=== PATIENT | male | born 1945 | race Caucasian/White ===

== ENCOUNTER 2023-08-06 20:23 | Emergency (ER) | payer MEDICARE ==
[2023-08-06 20:49] LABS: BASOPHILS # (AUTO) 0.1 10^3/uL (0.0-0.1); BASOPHILS % (AUTO) 0.6 %; EOSINOPHILS % (AUTO) 0.3 %; HCT - HEMATOCRIT 41.6 % (42.0-52.0); HGB - HEMOGLOBIN 14.3 g/dL (14.0-18.0); LYMPHOCYTES # (AUTO) 1.1 10^3/uL (1.5-3.5); LYMPHOCYTES % (AUTO) 11.4 %; MEAN CORPUSCULAR HEMOGLOBIN 30.8 pg (27.0-31.0); MEAN CORPUSCULAR HGB CONC 34.4 g/dL (32.0-36.0); MEAN CORPUSCULAR VOLUME 89.7 fL (80.0-94.0); MEAN PLATELET VOLUME 10.3 fL (7.4-11.4); MONOCYTES # (AUTO) 0.8 10^3/uL (0.0-1.0); NEUTROPHILS # (AUTO) 7.6 10^3/uL (1.5-6.6); NEUTROPHILS % (AUTO) 79.3 %; PLT - PLATELET COUNT 203 10^3/uL (130-450); RED BLOOD COUNT 4.64 10^6/uL (4.70-6.10); RED CELL DISTRIBUTION WIDTH 11.5 % (12.0-15.0); WHITE BLOOD COUNT 9.6 x10^3/uL (4.8-10.8)
[2023-08-06 21:03] LABS: ALBUMIN 4.5 g/dL (3.2-5.5); ALBUMIN/GLOBULIN RATIO 1.9 (1.0-2.2); CALCIUM 9.6 mg/dL (8.5-10.3); CREATININE 0.8 mg/dL (0.6-1.3); POTASSIUM 3.2 mmol/L (3.5-4.5); TOTAL PROTEIN 6.9 g/dL (6.4-8.9)
[2023-08-06 22:17] LABS: BILIRUBIN,URINE NEGATIVE (NEGATIVE); GLUCOSE, URINE (UA) NEGATIVE (NEGATIVE); KETONES,URINE (UA) TRACE mg/dL (NEGATIVE); LEUKOCYTE ESTERASE, URINE NEGATIVE (NEGATIVE); NITRITE,URINE NEGATIVE (NEGATIVE); OCCULT BLOOD,URINE TRACE-LYSE (NEGATIVE); PH,URINE 6.5 PH (5.0-7.5); PROTEIN,URINE TRACE mg/dL (NEGATIVE); UROBILINOGEN,URINE 0.2 (NORMAL) E.U./dL (NORMAL)
[2023-08-06 22:18] LABS: CLARITY,URINE CLEAR (CLEAR)
--- NOTE | 2023-08-06 22:57 | ED Physician Documentation ---
History of Present Illness - Stated complaint Stated Complaint: GI - Chief complaint Chief Complaint: Abd Pain - History obtained from History obtained from: Patient - Additonal information Additional information: 77-year-old man with history of constipation, Parkinson's, presents with inability to urinate since this afternoon as well as sensation that he needs to poop but unable to do so. He had a small hard stool yesterday. He has had to have disimpaction multiple times in the past and was able to urinate thereafter. Denies other symptoms PD PAST MEDICAL HISTORY - Past Medical History Past Medical History: Yes Cardiovascular: Hypertension, High cholesterol Neuro: Parkinson's : Benign prostate hypertrophy - Past Surgical History Past Surgical History: Yes Ortho: Hip replacement - Present Medications Home Medications: Ambulatory Orders Medication Instructions Recorded Confirmed Carbidopa/Levodopa 25/250 [Sinemet 1 tab PO TID 08/06/23 08/06/23 25 mg/250 mg] Famotidine [Acid Kelp Cutter] 20 mg PO DAILY 08/06/23 08/06/23 Simvastatin [Zocor] 10 mg PO DAILY 08/06/23 08/06/23 - Allergies Allergies/Adverse Reactions: Allergies Allergy/AdvReac Type Severity Reaction Status Date / Time No Known Drug Allergies Allergy Verified 08/06/23 20:34 - Social History Does the pt smoke?: No Smoking Status: Never smoker Does the pt drink ETOH?: No Does the pt have substance abuse?: No - Immunizations Immunizations are current?: Yes PD ED PE NORMAL - Vitals Vital signs reviewed: Yes - General General: Alert and oriented X 3, No acute distress, Well developed/nourished - HEENT HEENT: Atraumatic, PERRL, EOMI - Abdomen Abdomen: Non tender, Non distended - Rectal Rectal: Other (External nonthrombosed hemorrhoids. Large stool burden on digital rectal exam. Patient was disimpacted successfully) - Derm Derm: Normal color, Warm and dry Results - Vitals Vitals: Vital Signs - 24 hr 08/06/23 20:28 Temperature 36.9 C Heart Rate 84 Respiratory 19 Rate Blood Pressure 189/100 H O2 Saturation 99 Oxygen O2 Source Room air - Labs Labs: Laboratory Tests 08/06/23 08/06/23 08/06/23 20:45 20:45 22:12 WBC 9.6 RBC 4.64 L Hgb 14.3 Hct 41.6 L MCV 89.7 MCH 30.8 MCHC 34.4 RDW 11.5 L Plt Count 203 MPV 10.3 Neut # (Auto) 7.6 H Lymph # (Auto) 1.1 L [place] # (Auto) 0.8 Eos # (Auto) 0.0 Baso # (Auto) 0.1 Absolute Nucleated RBC 0.00 Nucleated RBC % 0.0 Sodium 124 L Potassium 3.2 L Chloride 88 L Carbon Dioxide 27 Anion Gap 9.0 BUN 14 Creatinine 0.8 Estimated GFR (MDRD) 93 Glucose 122 H Calcium 9.6 Total Bilirubin 1.0 AST 25 ALT 14 Alkaline Phosphatase 58 Total Protein 6.9 Albumin 4.5 Globulin 2.4 Albumin/Globulin Ratio 1.9 Lipase 26 Urine Color YELLOW Urine Clarity CLEAR Urine pH 6.5 Ur Specific Romance 1.020 Urine Protein TRACE Urine Glucose (UA) NEGATIVE Urine Ketones TRACE Urine Occult Blood TRACE-LYSE Urine Nitrite NEGATIVE Urine Bilirubin NEGATIVE Urine Urobilinogen 0.2 (NORMAL) Ur Leukocyte Esterase NEGATIVE Ur Microscopic Review NOT INDICATED Urine Culture Comments NOT INDICATED PD Medical Decision Making - ED course ED course: 77-year-old man presents with constipation and inability to urinate since this afternoon. Patient was disimpacted and provided with an oil enema then had a bowel movement and urinated in the bathroom. He is feeling better and will follow-up outpatient with his primary care provider and take Dulcolax and MiraLAX at home. Return precautions given. Departure - Departure Disposition: 01 Home, Self Care Clinical Impression: Inability to urinate, Constipation Condition: Stable Instructions: ED Constipation Comments: You were seen in the emergency department for disimpaction. You should take miralax and dulcolax to prevent further constipation. Please follow-up with your primary care provider and return to the emergency department if you have any new or worsening symptoms or other concerns.
[2023-08-06 23:07] VITALS: BP 176/78; O2SAT 95
== END 2023-08-06 23:03 | disposition home or self-care (01) ==
LOC: ED 20:23
DX: R33.9 Retention of urine, unspecified (principal); K59.00 Constipation, unspecified; G20.A1 Parkinson's disease without dyskinesia, without mention of fluctuations; I10 Essential (primary) hypertension; E78.00 Pure hypercholesterolemia, unspecified; Z79.899 Other long term (current) drug therapy
CPT/HCPCS: 36415; 80053; 81001; 81003; 83690; 85025; 87086; 99283